=== PATIENT | female | born 1935 | race Caucasian/White ===

== ENCOUNTER 2019-05-17 03:04 | Emergency (ER) | payer OTHER, BC ==
[2019-05-17] MEDS ORDERED: cloNIDine HCl 0.1 MG TAB ONE ×2 (03:34→03:37)
[2019-05-17] MEDS ORDERED: HYDRALAZINE HCL 10 MG TABLET ONE (04:11)
--- NOTE | 2019-05-17 04:42 | EDPHYS ---
Physician Documentation [facility] Name: Wendy Fernandez Age: 83 yrs Sex: Female : 1935 Arrival Date: 05/17/2019 Time: 03:07 Bed 8 Private MD: ED Physician Prakash Hines HPI: 05/17 04:00 This 83 yrs old Female presents to ER via Ambulatory with complaints of High tw4 Blood Pressure. 04:00 The patient has elevated blood pressure and discovered this at home. Onset: The tw4 symptoms/episode began/occurred today. Modifying factors: The symptoms are aggravated by The symptoms are alleviated by OTC meds. Associated signs and symptoms: The patient has no apparent associated signs or symptoms. Severity of symptoms: At its worst the blood pressure was 206 mm Hg. The patient has not experienced similar symptoms in the past. Historical: - Allergies: 03:21 Sulfa (Sulfonamide Antibiotics); bb - Home Meds: 03:21 HCTZ [Active]; bb - PMHx: 03:21 Hypertension; bb - PSHx: 03:21 Appendectomy; Hysterectomy; colon surgery; bb - Immunization history:: Adult Immunizations up to date. - Social history:: Smoking status: Patient/guardian denies using tobacco. - Ebola Screening: : No symptoms or risks identified at this time. ROS: 04:00 Constitutional: Negative for fever, chills, and weight loss, Eyes: Negative for injury, tw4 pain, redness, and discharge, Cardiovascular: Negative for chest pain, palpitations, and edema, Respiratory: Negative for shortness of breath, cough, wheezing, and pleuritic chest pain, Abdomen/GI: Negative for abdominal pain, nausea, vomiting, diarrhea, and constipation, Back: Negative for injury and pain, MS/Extremity: Negative for injury and deformity, Skin: Negative for injury, rash, and discoloration, Neuro: Negative for headache, weakness, numbness, tingling, and seizure. Exam: 04:00 Constitutional: This is a well developed, well nourished patient who is awake, alert, tw4 and in no acute distress. Head/Face: Normocephalic, atraumatic. Chest/axilla: Normal chest wall appearance and motion. Nontender with no deformity. No lesions are appreciated. Cardiovascular: Regular rate and rhythm with a normal S1 and S2. No gallops, murmurs, or rubs. Normal PMI, no JVD. No pulse deficits. Respiratory: Lungs have equal breath sounds bilaterally, clear to auscultation and percussion. No rales, rhonchi or wheezes noted. No increased work of breathing, no retractions or nasal flaring. Abdomen/GI: Soft, non-tender, with normal bowel sounds. No distension or tympany. No guarding or rebound. No evidence of tenderness throughout. Back: No spinal tenderness. No costovertebral tenderness. Full range of motion. MS/ Extremity: Pulses equal, no cyanosis. Neurovascular intact. Full, normal range of motion. Neuro: Awake and alert, GCS 15, oriented to person, place, time, and situation. Cranial nerves II-XII grossly intact. Motor strength 5/5 in all extremities. Sensory grossly intact. Cerebellar exam normal. Normal gait. Vital Signs: 03:21 BP 190 / 86; Pulse 95; Resp 16 S; Temp 97.5(O); Pulse Ox 96% on R/A; Weight 65.77 kg bb (R); Height 5 ft. 2 in. (157.48 cm) (R); Pain 0/10; 03:40 BP 196 / 85; Pulse 94; Resp 18; Pulse Ox 95% on R/A; rr5 04:04 BP 184 / 72; Pulse 90; Resp 16; Pulse Ox 95% on R/A; rr5 04:25 BP 187 / 72; Pulse 75; Resp 16; Pulse Ox 96% on R/A; rr5 04:50 BP 141 / 79; Pulse 73; Resp 19; Temp 97.8; Pulse Ox 95% ; Pain 0/10; rr5 05:13 BP 109 / 62; Pulse 60; Resp 16; Pulse Ox 98% on R/A; rr5 03:21 Body Mass Index 26.52 (65.77 kg, 157.48 cm) bb 03:40 clonidine given rr5 MDM: 03:17 Patient medically screened. tw4 04:48 Differential diagnosis: hypertensive crisis, Malignant HTN. Data reviewed: vital signs, tw4 EMS record. Data interpreted: desk monitor: rate is 77 beats/min, rhythm is normal sinus rhythm, Pulse oximetry: Interpretation: normal. Counseling: I had a detailed discussion with the patient and/or guardian regarding: the historical points, exam findings, and any diagnostic results supporting the discharge/admit diagnosis. Medication response: clonidine partially reduced the patient's blood pressure. Response to treatment: and as a result, I will discharge patient. Special discussion: I discussed with the patient/guardian in detail that at this point there is no indication for admission to the hospital. It is understood, however, that if the symptoms persist or worsen the patient needs to return immediately for re-evaluation. Administered Medications: 03:40 Drug: cloNIDine 0.2 mg Route: PO; rr5 04:40 Follow up: Response: No adverse reaction; Blood pressure is lowered rr5 04:26 Drug: hydrALAZINE 10 mg Route: PO; rr5 04:40 Follow up: Response: Blood pressure is lowered rr5 05:17 Follow up: Response: Blood pressure is lowered rr5 Disposition: 05/17/19 04:41 Discharged to Home. Impression: Hypertension. - Condition is Stable. - Discharge Instructions: Hypertension. - Medication Reconciliation Form, Thank You Letter, Antibiotic Education, Prescription Opioid Use form. - Follow up: Private Physician; When: Upon discharge from the Emergency Department; Reason: Recheck today's complaints, Continuance of care. - Problem is new. - Symptoms have improved. Signatures: Kayleigh Toure RN RN Prakash George MD MD tw4 Maykel Gilbert RN RN rr5 Corrections: (The following items were deleted from the chart) 05:18 04:41 05/17/2019 04:41 Discharged to Home. Impression: Hypertension. Condition is rr5 Stable. Forms are Medication Reconciliation Form, Thank You Letter, Antibiotic Education, Prescription Opioid Use. Follow up: Private Physician; When: Upon discharge from the Emergency Department; Reason: Recheck today's complaints, Continuance of care. Problem is new. Symptoms have improved. tw4
--- NOTE | 2019-05-17 04:42 | ER ---
Nurse's Notes [facility] Name: Wendy Fernandez Age: 83 yrs Sex: Female : 1935 Arrival Date: 05/17/2019 Time: 03:07 Bed 8 Private MD: Diagnosis: Hypertension Presentation: 05/17 03:19 Presenting complaint: Patient states: she checked her blood pressure last night and it bb was higher than normal then she has been rechecking it and it just keeps getting higher she denies all other symptoms. Transition of care: patient was not received from another setting of care. Onset of symptoms was May 17, 2019. Risk Assessment: Do you want to hurt yourself or someone else? Patient reports no desire to harm self or others. Initial Sepsis Screen: Does the patient meet any 2 criteria? No. Patient's initial sepsis screen is negative. Does the patient have a suspected source of infection? No. Patient's initial sepsis screen is negative. Care prior to arrival: None. 03:19 Method Of Arrival: Ambulatory bb 03:19 Acuity: FIDE 4 bb Historical: - Allergies: 03:21 Sulfa (Sulfonamide Antibiotics); bb - Home Meds: 03:21 HCTZ [Active]; bb - PMHx: 03:21 Hypertension; bb - PSHx: 03:21 Appendectomy; Hysterectomy; colon surgery; bb - Immunization history:: Adult Immunizations up to date. - Social history:: Smoking status: Patient/guardian denies using tobacco. - Ebola Screening: : No symptoms or risks identified at this time. Screenin:13 Abuse screen: Denies threats or abuse. Denies injuries from another. Nutritional rr5 screening: No deficits noted. Tuberculosis screening: No symptoms or risk factors identified. Fall Risk None identified. Mental Status- Oriented to own ability (0 pts). Total Chen Fall Scale indicates No Risk (0-24 pts). Assessment: 03:20 General: Appears in no apparent distress. Behavior is calm, cooperative. Pain: Denies rr5 pain. Neuro: Level of Consciousness is awake, alert, obeys commands, Oriented to person, place, time, situation, Appropriate for age. Cardiovascular: Reports high blood pressure Capillary refill < 3 seconds Patient's skin is warm and dry. 03:20 Respiratory: Airway is patent Respiratory effort is even, unlabored, Respiratory rr5 pattern is regular, symmetrical. GI: No signs and/or symptoms were reported involving the gastrointestinal system. : No signs and/or symptoms were reported regarding the genitourinary system. EENT: No signs and/or symptoms were reported regarding the EENT system. Derm: Skin is intact, is fragile, is thin, Skin temperature is warm. Musculoskeletal: Circulation, motion, and sensation intact. Capillary refill < 3 seconds. 03:40 Reassessment: BP 196/85 mmHg see MAR for the stat medication given. rr5 04:20 Reassessment: BP 187/72mmHg ED provider aware with order made and carried out. rr5 05:15 Reassessment: Patient appears in no apparent distress at this time. Patient is alert, rr5 oriented x 3, equal unlabored respirations, skin warm/dry/pink. discharge instruction given and explained without complaints made. verbalized understanding Patient denies pain at this time. Patient states feeling better. Patient states symptoms have improved. Vital Signs: 03:21 BP 190 / 86; Pulse 95; Resp 16 S; Temp 97.5(O); Pulse Ox 96% on R/A; Weight 65.77 kg bb (R); Height 5 ft. 2 in. (157.48 cm) (R); Pain 0/10; 03:40 BP 196 / 85; Pulse 94; Resp 18; Pulse Ox 95% on R/A; rr5 04:04 BP 184 / 72; Pulse 90; Resp 16; Pulse Ox 95% on R/A; rr5 04:25 BP 187 / 72; Pulse 75; Resp 16; Pulse Ox 96% on R/A; rr5 04:50 BP 141 / 79; Pulse 73; Resp 19; Temp 97.8; Pulse Ox 95% ; Pain 0/10; rr5 05:13 BP 109 / 62; Pulse 60; Resp 16; Pulse Ox 98% on R/A; rr5 03:21 Body Mass Index 26.52 (65.77 kg, 157.48 cm) bb 03:40 clonidine given rr5 ED Course: 03:07 Patient arrived in ED. ag3 03:13 Maykel Gilbert, RN is Primary Nurse. rr5 03:14 Patient has correct armband on for positive identification. Placed in gown. Bed in low rr5 position. Call light in reach. Side rails up X2. Pulse ox on. NIBP on. 03:17 Prakash Hines MD is Attending Physician. tw4 03:20 Triage completed. charles 03:21 Arm band placed on Patient placed in an exam room, on a stretcher, on pulse oximetry. charles Family accompanied patient. 05:16 No provider procedures requiring assistance completed. Patient did not have IV access rr5 during this emergency room visit. Administered Medications: 03:40 Drug: cloNIDine 0.2 mg Route: PO; rr5 04:40 Follow up: Response: No adverse reaction; Blood pressure is lowered rr5 04:26 Drug: hydrALAZINE 10 mg Route: PO; rr5 04:40 Follow up: Response: Blood pressure is lowered rr5 05:17 Follow up: Response: Blood pressure is lowered rr5 Outcome: 04:41 Discharge ordered by . tw4 05:16 Discharged to home via wheelchair, with family. rr5 05:16 Condition: stable 05:16 Discharge instructions given to patient, Instructed on discharge instructions, follow up and referral plans. Demonstrated understanding of instructions, follow-up care. 05:18 Patient left the ED. rr5 Signatures: Kayleigh Toure, RN RN bb Prakash Hines MD MD tw4 Kanchan Pascual Raymond, RN RN rr5
[2019-05-17 05:29] VITALS: TEMP 97.8
[2019-05-17 05:30] VITALS: BP 109/62; O2SAT 98
== END 2019-05-17 05:18 | disposition home or self-care (01) ==
LOC: ER 03:04
DX: I10 Essential (primary) hypertension (principal); Z88.2 Allergy status to sulfonamides
CPT/HCPCS: 99283